=== PATIENT | female | born 1985 | race American Indian/Alaskan Native ===

== ENCOUNTER 2018-07-20 13:05 | Emergency (ER) | payer MEDICAID, OTHER ==
[2018-07-20 13:11] VITALS: BP 117/81
[2018-07-20] MEDS ORDERED: Iopamidol 755 Mg/ML 100 ML Bottle IVPUSH ONE (13:46)
--- NOTE | 2018-07-20 13:52 | EDM.PDOC ---
ED HPI GENERAL MEDICAL PROBLEM - General Chief Complaint: ENT Problem Stated Complaint: THROAT ABSCESS Time Seen by Provider: 07/20/18 13:40 Source of Information: Reports: Patient History Limitations: Reports: No Limitations - History of Present Illness INITIAL COMMENTS - FREE TEXT/NARRATIVE: This 33 yo male patient was sent to the ED from Dr Meier ([facility]) to get a CT of the neck due to a possible peritonsillar abscess. The patient reports she started to have a sore throat on Monday (07/14/18). The patient reports her symptoms have been getting worse and the right side is worse than the left. The patient was sent with a packet of papers demonstrating an elevated WBC of 13.5 and a negative rapid strep test. The patient was given 2 liters of IV fluid, IV Toradol and an oral dose of Azithromycin while in the [facility]. Onset Date: 07/14/18 Duration: Constant, Getting Worse Location: Reports: Neck Quality: Reports: Ache, Sharp Severity: Moderate Improves with: Reports: None Worsens with: Reports: None - Related Data Allergies Allergy/AdvReac Type Severity Reaction Status Date / Time cephalexin [Cephalexin] Allergy Hives Verified 07/18/15 09:10 Home Meds: Home Meds Acetaminophen [Tylenol] 650 mg PO Q4H PRN 04/27/15 [History] Past Medical History HEENT History: Reports: None Cardiovascular History: Reports: None Respiratory History: Reports: SOB Genitourinary History: Reports: Other (See Below) Other Genitourinary History: 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 Other TAIL END RIDER History: misscarriage Musculoskeletal History: Reports: None Neurological History: Reports: None Psychiatric History: Reports: Depression Endocrine/Metabolic History: Reports: None Hematologic History: Reports: Anemia Other Hematologic History: blood in 2009 Immunologic History: Reports: None Oncologic (Cancer) History: Reports: None Dermatologic History: Reports: None - Infectious Disease History Infectious Disease History: Reports: None - Past Surgical History Head Surgeries/Procedures: Reports: None GI Surgical History: Reports: Appendectomy Social & Family History - Family History Family Medical History: Noncontributory - Tobacco Use Smoking Status *Q: Current Some Day Smoker Years of Tobacco use: 1 Packs/Tins Daily: 0.1 ED ROS ENT - Review of Systems Review Of Systems: ROS reveals no pertinent complaints other than HPI. ED EXAM, ENT - Physical Exam Exam: See Below Exam Limited By: No Limitations General Appearance: Alert, WD/WN, Moderate Distress Eye Exam: Bilateral Eye: EOMI, Normal Inspection, PERRL Ears: Normal External Exam, Normal Canal, Hearing Grossly Normal, Normal TMs Nose: Normal Inspection, Normal Mucousa, No Blood Mouth/Throat: Tonsillar Swelling (right sided with no visible exudate) Head: Atraumatic, Normocephalic Neck: Lymphadenopathy (R) (anterior cervical) Respiratory/Chest: No Respiratory Distress, Lungs Clear, Normal Breath Sounds, No Accessory Muscle Use, Chest Non-Tender Cardiovascular: Normal Peripheral Pulses, Regular Rate, Rhythm, No Edema, No Gallop, No JVD, No Murmur, No Rub GI/Abdominal: Normal Bowel Sounds, Soft, Non-Tender, No Organomegaly, No Distention, No Abnormal Bruit, No Mass (Female) Exam: Deferred Rectal (Female) Exam: Deferred Back: Normal Inspection, Full Range of Motion Extremities: Normal Inspection, Normal Range of Motion, Non-Tender, No Pedal Edema, Normal Capillary Refill Neurological: Alert, Oriented, CN II-XII Intact, Normal Cognition, Normal Gait, Normal Reflexes, No Motor/Sensory Deficits Psychiatric: Normal Affect, Normal Mood Skin: Warm, Dry, Intact, Normal Color, No Rash Lymphatic: No Adenopathy Course - Vital Signs Last Recorded V/S: Last Vital Signs Temp 37.2 C 07/20/18 13:10 Pulse 102 H 07/20/18 13:10 Resp 16 07/20/18 13:10 BP 117/81 07/20/18 13:10 Pulse Ox 100 07/20/18 13:10 - Orders/Labs/Meds Orders: Active Orders 24 hr Category Date Time Status Soft Tissue Neck w Cont [CT] Urgent Exams 07/20/18 13:44 Taken Clindamycin Phosphate [Cleocin] 300 mg Med 07/20/18 15:21 Ordered Sodium Chloride 0.9% [Normal Saline] 50 ml IV ONETIME Medication Orders Clindamycin Phosphate 300 mg/ (Sodium Chloride) 52 mls @ 50 mls/hr IV ONETIME ONE Stop: 07/20/18 16:23 Meds: Medications Generic Name Dose Route Start Last Admin Trade Name Freq PRN Reason Stop Dose Admin Clindamycin Phosphate 300 mg/ 52 mls @ 50 mls/hr 07/20/18 15:21 Sodium Chloride IV 07/20/18 16:23 ONETIME ONE Discontinued Medications Generic Name Dose Route Start Last Admin Trade Name Abundio PRN Reason Stop Dose Admin Dexamethasone 2 mg 07/20/18 15:21 Dexamethasone IVPUSH 07/20/18 15:22 ONETIME ONE Iopamidol 75 ml 07/20/18 14:59 07/20/18 15:00 Isovue-300 (61%) IVPUSH 07/20/18 15:00 75 ml ONETIME ONE Administration Departure - Departure Time of Disposition: 15:28 Disposition: DC/Tfer to Acute Hospital 02 Condition: Fair Clinical Impression: Peritonsillar abscess - Discharge Information *PRESCRIPTION DRUG MONITORING PROGRAM REVIEWED*: Not Applicable Forms: Interfacility Transfer EMTALA Care Plan Goals: Discussed the examination, lab and CT results with Dr. Holm and Dr. Sanchez. Dr. Holm accepted the patient for continued evaluation and management in the ED at [facility] in [place]. The patient will be transported by private vehicle. - My Orders Last 24 Hours: My Active Orders 07/20/18 13:44 Soft Tissue Neck w Cont [CT] Urgent 07/20/18 15:21 Clindamycin Phosphate [Cleocin] 300 mg Sodium Chloride 0.9% [Normal Saline] 50 ml IV ONETIME - Assessment/Plan Last 24 Hours: My Active Orders 07/20/18 13:44 Soft Tissue Neck w Cont [CT] Urgent 07/20/18 15:21 Clindamycin Phosphate [Cleocin] 300 mg Sodium Chloride 0.9% [Normal Saline] 50 ml IV ONETIME
[2018-07-20] MEDS ORDERED: Iopamidol 612 MG/ML 75 ML Bottle IVPUSH ONE (14:59)
[2018-07-20] MEDS ORDERED: Dexamethasone 4 MG/ML SDV IVPUSH ONE (15:21)
== END 2018-07-20 16:25 ==
LOC: DL.ED 13:05
DX: J36 Peritonsillar abscess (principal); F17.210 Nicotine dependence, cigarettes, uncomplicated; Z88.1 Allergy status to other antibiotic agents
CPT/HCPCS: 70491; 96365; 96375; 99285; J1100; J3490; J7050; Q9967

== ENCOUNTER 2018-10-24 23:19 | Emergency (ER) | payer MEDICAID, OTHER ==
[2018-10-24 23:27] VITALS: BP 127/89
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
== END 2018-10-24 23:35 | disposition home or self-care (01) ==
LOC: DL.ED 23:19
DX: T23.232A Burn of second degree of multiple left fingers (nail), not including thumb, initial encounter (principal); F32.9 Major depressive disorder, single episode, unspecified; Z88.1 Allergy status to other antibiotic agents; F41.9 Anxiety disorder, unspecified; Z79.899 Other long term (current) drug therapy; W40.8XXA Explosion of other specified explosive materials, initial encounter
CPT/HCPCS: 99283

== ENCOUNTER 2020-02-23 16:45 | Emergency (ER) | payer MEDICAID ==
[2020-02-23 16:56] VITALS: BP 138/93; PULSE 81
[2020-02-23] MEDS ORDERED: Amoxicillin/Clavulanate K 875-125 MG Tab PO ONE (17:06)
--- NOTE | 2020-02-23 17:10 | EDM.PDOC ---
Scribed by Trini Pleitez 02/23/20 4801 for Palmira Nicolas MD ED HPI GENERAL MEDICAL PROBLEM - General Chief Complaint: ENT Problem Stated Complaint: HAD A TOOTH PULLED LEFT BOTTOM JAW, FEELS INFECTED Time Seen by Provider: 02/23/20 17:01 Source of Information: Reports: Patient, RN, RN Notes Reviewed History Limitations: Reports: No Limitations - History of Present Illness INITIAL COMMENTS - FREE TEXT/NARRATIVE: Patient presents to ED stating that she had a tooth pulled on . She slept most of the day on Monday. She states it smells like pus not blood. She has had teeth pulled in the past and feels like this si different. It is throbbing. She notes a bad cavity on the tooth right in front of where it pulled. She asked the dentist to pull this one as well, but they did not. No fevers. No chills. Onset: Gradual Duration: Constant Location: Reports: Other (mouth) Quality: Reports: Ache Severity: Mild Improves with: Reports: None Worsens with: Reports: None Associated Symptoms: Reports: No Other Symptoms - Related Data Allergies Allergy/AdvReac Type Severity Reaction Status Date / Time cephalexin [Cephalexin] Allergy Hives Verified 02/23/20 17:05 Home Meds: Home Meds Acetaminophen [Tylenol] 650 mg PO Q4H PRN 04/27/15 [History] Past Medical History HEENT History: Reports: None Cardiovascular History: Reports: None Respiratory History: Reports: SOB Gastrointestinal History: Reports: None Genitourinary History: Reports: Other (See Below) Other Genitourinary History: 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 History: misscarriage Musculoskeletal History: Reports: None Neurological History: Reports: None Psychiatric History: Reports: Depression Endocrine/Metabolic History: Reports: None Hematologic History: Reports: Anemia Other Hematologic History: blood in 2009 Immunologic History: Reports: None Oncologic (Cancer) History: Reports: None Dermatologic History: Reports: None - Infectious Disease History Infectious Disease History: Reports: None - Past Surgical History Head Surgeries/Procedures: Reports: None GI Surgical History: Reports: Appendectomy Social & Family History - Family History Family Medical History: Noncontributory - Caffeine Use Caffeine Use: Reports: Coffee ED ROS ENT - Review of Systems Review Of Systems: Comprehensive ROS is negative, except as noted in HPI. ED EXAM, ENT - Physical Exam Exam: See Below Exam Limited By: No Limitations General Appearance: Alert, WD/WN, No Apparent Distress Mouth/Throat: Other (left lower molar extracted. Moderate erythema and induration. No fluctuance or drainage. Massive cavity of molar just anterior. ) Head: Atraumatic, Normocephalic Neck: Normal Inspection Respiratory/Chest: No Respiratory Distress Cardiovascular: Regular Rate, Rhythm Neurological: Alert, Oriented, Normal Cognition, Normal Gait Psychiatric: Normal Affect, Normal Mood Skin: Warm, Dry Course - Vital Signs Last Recorded V/S: Last Vital Signs Temp 97.6 F 02/23/20 16:54 Pulse 81 02/23/20 16:54 Resp 16 02/23/20 16:54 BP 138/93 H 02/23/20 16:54 Pulse Ox 100 02/23/20 16:54 - Orders/Labs/Meds Meds: Medications Discontinued Medications Generic Name Dose Route Start Last Admin Trade Name Freq PRN Reason Stop Dose Admin Amoxicillin/Clavulanate Potassium 1 tab 02/23/20 17:06 Augmentin 875 Mg/125 Mg PO 02/23/20 17:07 ONETIME ONE Departure - Departure Time of Disposition: 17:07 Disposition: Home, Self-Care 01 Condition: Good Clinical Impression: Dental infection - Discharge Information *PRESCRIPTION DRUG MONITORING PROGRAM REVIEWED*: Not Applicable *COPY OF PRESCRIPTION DRUG MONITORING REPORT IN PATIENT GE: Not Applicable Instructions: Dental Abscess, [id number] Forms: ED Department Discharge Additional Instructions: RX: Augmentin 875. Continue to routine post removal care per dentist. Sepsis Event Note (ED) - Focused Exam Vital Signs: Vital Signs Temp Pulse Resp BP Pulse Ox 02/23/20 16:54 97.6 F 81 16 138/93 H 100 - Assessment/Plan Assessment:: 34 yo female with dental infection after tooth extraction Plan: augmentin given in ER script to fill tomorrow continue to follow dentist instructions fu with pcp in 3-5 days I have read and agree with the documentation that has been completed regarding this visit. By signing this record, I attest that the documentation was completed in my physical presence and is an accurate record of the encounter.
== END 2020-02-23 17:14 | disposition home or self-care (01) ==
LOC: DL.ED 16:45
DX: K04.7 Periapical abscess without sinus (principal); K02.9 Dental caries, unspecified; Z88.1 Allergy status to other antibiotic agents
CPT/HCPCS: 99282; 99283; A9270

== ENCOUNTER 2022-08-14 15:23 | Emergency (ER) | payer MEDICAID ==
[2022-08-14] MEDS ORDERED: Clindamycin HCl 150 MG Cap PO ONE ×2 (15:24→15:35)
[2022-08-14] MEDS ORDERED: Lidocaine 2% Viscous Solution 15 ML UD PO ONE (15:24)
[2022-08-14 15:30] VITALS: BP 145/103; PULSE 78
[2022-08-14] MEDS ORDERED: Acetaminophen/HYDROcodone 325-10 MG Tab PO ONE (15:34)
[2022-08-14] MEDS ORDERED: Clindamycin HCl 150 MG Cap ONE ×2 (15:46→15:50)
[2022-08-14] MEDS ORDERED: Lidocaine 2% Viscous Solution 15 ML UD ONE (15:48)
== END 2022-08-14 15:57 | disposition home or self-care (01) ==
LOC: DL.ED 15:23
DX: K04.7 Periapical abscess without sinus (principal); K02.9 Dental caries, unspecified; Z88.1 Allergy status to other antibiotic agents
CPT/HCPCS: 99282; A9270